=== PATIENT | female | born 1965 | race American Indian/Alaskan Native ===

== ENCOUNTER 2020-02-14 19:07 | Emergency (ER) | payer OTHER ==
--- NOTE | 2020-02-14 19:36 | Event Note ---
ED Screening Note ED Screening Note: pt presents for constipation that began 4 days ago not able to pass gas has not used any medication abd pain no vomiting no nausea +abdominal bloating PSHx: x1, hysterectomy no allergies to meds This initial assessment/diagnostic orders/clinical plan/treatment(s) is/are subject to change based on patients health status, clinical progression and re- assessment by fellow clinical providers in the ED. Further treatment and workup at subsequent clinical providers discretion. Patient/guardian urged not to elope from the ED as their condition may be serious if not clinically assessed and managed. Initial orders include: labs, UA, CT abd pelvis
[2020-02-14 20:06] LABS: Basophils % (Auto) 0.5 % (0.0-1.8); Eosinophils # (Auto) 0.1 K/mm3 (0.0-0.4); Eosinophils % (Auto) 0.9 % (0.0-4.3); Hemoglobin 13.8 gm/dl (10.1-14.3); Lymphocytes # (Auto) 2.2 K/mm3 (1.2-5.4); Lymphocytes % (Auto) 25.7 % (13.4-35.0); Monocytes # (Auto) 0.6 K/mm3 (0.0-0.8); Monocytes % (Auto) 6.5 % (0.0-7.3)
[2020-02-14 20:10] LABS: Hematocrit 41.3 % (30.3-42.9); Mean Corpuscular HGB Conc 34 % (30-34); Mean Corpuscular Volume 91 fl (79-97); Platelet Count 239 K/mm3 (140-440); Red Blood Count 4.54 M/mm3 (3.65-5.03); Red Cell Distribution Width 12.8 % (13.2-15.2)
[2020-02-14 20:27] LABS: Alanine Aminotransferase 29 units/L (7-56); Albumin 4.4 g/dL (3.9-5); BUN/Creatinine Ratio 14; Blood Urea Nitrogen 10 mg/dL (7-17); Calcium 9.8 mg/dL (8.4-10.2); Hemolysis Index 6
[2020-02-14] MEDS ORDERED: MORPHINE 4 MG/1 ML INJ IV ONE (20:47)
[2020-02-14] MEDS ORDERED: ONDANSETRON 4 MG/2 ML INJ IV ONE (20:47)
[2020-02-14] MEDS ORDERED: SODIUM CHLORIDE 0.9% 500 ML 500 ML IV ONE (20:47)
--- NOTE | 2020-02-14 20:52 | Emergency Department Report ---
ED Abdominal Pain HPI - General Chief Complaint: Abdominal Pain Stated Complaint: CANT HAVE A BM PUI?: No Time Seen by Provider: 02/14/20 19:33 Source: patient, family, RN notes reviewed Mode of arrival: Ambulatory Limitations: No Limitations - History of Present Illness Initial Comments: Please note that this provider is conversant in Mongolian. In addition, the patient is accompanied by her , who is conversational and fluent in both Niuean and Mongolian, and the patient requests that the translate for her. The patient is a 54-year-old female who is not known to myself previously, she does not have a local primary care doctor, denies chronic medical conditions, reports a surgical history of C-sections. Presents to the ER with a complaint of 4 days abdominal distention, inability to have a bowel movement, diffuse lower back pain, diffuse lower abdominal pain. No headache, neck pain, chest pain, shortness of breath, question dysuria, no cough, no exposure to coronavirus, no loss of taste. Minimal flatulence. Symptoms constant for the past 4 days, do not radiate anywhere, and she does not describe exacerbating or relieving factors. No additional complaints she does believe that her abdomen is distended when compared to baseline. Her corroborates this. MD Complaint: abdominal pain -: Gradual, days(s) Location: diffuse Radiation: other Migration to: other Quality: other Consistency: other Improves With: other Worsens With: other Associated Symptoms: nausea, vomiting, constipation, other. denies: diarrhea, fever, hematemesis, hematochezia, melena, hematuria - Related Data Previous Rx's Medication Instructions Recorded Last Taken Type Lactulose [Cephulac] 20 gm PO QDAY #210 ml 02/15/20 Unknown Rx polyethylene glycoL 3350 [Miralax 17 gm PO BID #60 packet 02/15/20 Unknown Rx 3350] Allergies Allergy/AdvReac Type Severity Reaction Status Date / Time No Known Allergies Allergy Unverified 02/14/20 19:26 ED Review of Systems ROS: Stated complaint: CANT HAVE A BM Other details as noted in HPI Constitutional: denies: fever Eyes: denies: eye discharge ENT: denies: congestion Respiratory: denies: cough Cardiovascular: denies: chest pain Gastrointestinal: abdominal pain, constipation Genitourinary: as per HPI Musculoskeletal: back pain Skin: denies: lesions Neurological: denies: headache Hematological/Lymphatic: denies: easy bleeding ED Past Medical Hx - Social History Smoking Status: Never Smoker Substance Use Type: Alcohol - Medications Home Medications: Home Medications Medication Instructions Recorded Confirmed Last Taken Type Lactulose [Cephulac] 20 gm PO QDAY #210 ml 02/15/20 Unknown Rx polyethylene glycoL 3350 [Miralax 17 gm PO BID #60 packet 02/15/20 Unknown Rx 3350] ED Physical Exam - General Limitations: Language Barrier General appearance: alert, in no apparent distress - Head Head exam: Present: atraumatic, normocephalic - Eye Eye exam: Present: normal appearance, EOMI. Absent: nystagmus - ENT ENT exam: Present: normal exam, normal orophraynx, mucous membranes moist, normal external ear exam - Neck Neck exam: Present: normal inspection, full ROM. Absent: tenderness, meningismus - Respiratory Respiratory exam: Present: normal lung sounds bilaterally. Absent: respiratory distress - Cardiovascular Cardiovascular Exam: Present: regular rate, normal rhythm, normal heart sounds. Absent: bradycardia, tachycardia, irregular rhythm, systolic murmur, diastolic murmur, rubs, gallop - GI/Abdominal GI/Abdominal exam: Present: soft, distended, tenderness, diminished bowel sounds. Absent: guarding, rigid, pulsatile mass - Extremities Exam Extremities exam: Present: normal inspection, full ROM, other (2+ pulses noted in the bilateral upper and lower extremities. There is no palpable cord. negative Homans sign. Muscular compartments are soft. The pelvis is stable.). Absent: pedal edema, calf tenderness - Back Exam Back exam: Present: normal inspection, full ROM. Absent: tenderness, CVA tenderness (R), CVA tenderness (L), paraspinal tenderness, vertebral tenderness - Neurological Exam Neurological exam: Present: alert, normal gait, other (No facial droop. Tongue midline. Extraocular movements intact bilaterally. Facial sensation intact to light touch in V1, V2, V3 distribution bilaterally. 5 and a 5 strength in 4 extremities. Sensation intact to light touch in 4 extremities.). Absent: motor sensory deficit - Psychiatric Psychiatric exam: Present: anxious - Skin Skin exam: Present: warm, dry, intact, normal color. Absent: rash ED Course Vital Signs 02/14/20 02/14/20 02/14/20 19:26 21:18 21:22 Temperature 98.6 F 98.3 F Pulse Rate 74 69 78 Respiratory 18 15 18 Rate Blood Pressure 169/99 Blood Pressure 167/89 [Right] O2 Sat by Pulse 98 100 100 Oximetry 02/14/20 02/14/20 02/14/20 21:30 21:46 22:09 Temperature Pulse Rate 74 75 92 H Respiratory 21 20 18 Rate Blood Pressure 170/93 170/93 170/93 Blood Pressure [Right] O2 Sat by Pulse 100 100 Oximetry 02/14/20 02/15/20 02/15/20 22:16 01:56 02:00 Temperature Pulse Rate 82 82 Respiratory 18 21 Rate Blood Pressure 170/93 170/93 167/100 Blood Pressure [Right] O2 Sat by Pulse 100 100 100 Oximetry 02/15/20 02:05 Temperature 98.3 F Pulse Rate Respiratory Rate Blood Pressure Blood Pressure [Right] O2 Sat by Pulse Oximetry - Reevaluation(s) Reevaluation #1: 02/14/20 20:52 Differential diagnosis, including but not limited to: Constipation, obstruction, volvulus Assessment and plan: 54-year-old female with a complaint of abdominal pain, distention, nausea, decreased bowel movements, decreased flatus. We will treat her symptoms, obtain CT scan of the abdomen pelvis, EKG, urinalysis, and reassess. Discussed plan of care with patient and , who verbalized understanding, and whom are amenable to this plan of care. Reevaluation #2: 02/15/20 02:08 CT scan shows constipation. Belly soft on repeat exam. No active vomiting. P atient had partial relief with soapsuds enema We will give magnesium citrate in the emergency room, and discontinue with lactulose and MiraLAX prescription. Findings were explained to the patient and she verbalized understanding. Reevaluation #3: 02/15/20 02:13 Hypertension/elevated blood pressure reviewed and appreciated. Patient asymptomatic in this perspective, please reference the [employer] clinical policy on asymptomatic hypertension. ED Medical Decision Making - Lab Data Result diagrams: 02/14/20 19:52 02/14/20 19:52 Vital Signs 02/14/20 19:26 Temperature 98.6 F Pulse Rate 74 Respiratory 18 Rate Blood Pressure 169/99 O2 Sat by Pulse 98 Oximetry - EKG Data -: EKG Interpreted by Me EKG shows normal: sinus rhythm Rate: normal - EKG Data When compared to previous EKG there are: previous EKG unavailable 02/14/20 22:37 Sinus rhythm, 83 bpm, normal axis, QTC is prolonged, nonspecific T wave abnormalities, NM interval within normal limits, no endorsement of chest pain, the EKG is abnormal, the EKG is not a STEMI. - Radiology Data Radiology results: pending, report reviewed, image reviewed Print Report Referring Physician: BAILEY LAIRD Patient Name: JEN BAI Date of : 1965 Sex: Female Report Date: 2020-02-14 Report Status: Finalized Findings [facility] [address] [place] [address] Cat Scan Report Signed Patient: JEN BAI MR#: [id number] 21 : 1965 Acct:[id number] Age/Sex: 54 / F ADM Date: 02/14/20 Loc: ED Attending Dr: Ordering Physician: MARCOS CARROLL Date of Service: 02/14/20 Procedure(s): CT abdomen pelvis w con Accession Number(s): [id number] cc: MARCOS CARROLL CT ABDOMEN AND PELVIS WITH CONTRAST INDICATION / CLINICAL INFORMATION: Pt complains of abdominal pain, distension, constipation x 4 days Omnipaque 300 / 100ml's was used for this exam.. TECHNIQUE: Axial CT images were obtained through the abdomen and pelvis after 100 mL Omnipaque [address] scans at this location are performed using CT dose reduction for ALARA by means of automated exposure control. COMPARISON: None available. FINDINGS: LOWER CHEST: Mild atelectatic changes lung bases. No evident pleural fluid or acute airspace consolidation. LIVER: No significant abnormality. BILIARY SYSTEM: No significant abnormality. PANCREAS: No significant abnormality. SPLEEN: No significant abnormality. ADRENALS: No significant abnormality. KIDNEYS and URETERS: No significant abnormality. STOMACH / BOWEL: No significant abnormality of the stomach and small bowel. Normal appendix. Large volume of fecal material is pr esent throughout the colon. No acute inflammatory or obstructive changes. Fecal material distends the rectum. PERITONEUM: No free fluid. No free air. No fluid collection. LYMPH NODES: No adenopathy. VASCULAR STRUCTURES: No significant abnormality. URINARY BLADDER: Markedly distended. No wall thickening or calculi. REPRODUCTIVE ORGANS: No significant abnormality. ADDITIONAL FINDINGS: None. SKELETAL SYSTEM: No acute finding. Partially lumbarized first sacral segment is incidentally noted. IMPRESSION: 1. Findings suggestive of constipation are present. 2. No other acute finding. Signer Name: Omer Arroyo MD Signed: 02/14/2020 10:38 PM Workstation Name: [id number] Transcribed By: SHANDRA Dic tated By: Omer Arroyo MD Electronically Authenticated By: Omer Arroyo MD Signed Date/Time: 02/14/202237 DD/ 32 Critical care attestation.: If time is entered above; I have spent that time in minutes in the direct care of this critically ill patient, excluding procedure time. ED Disposition Clinical Impression: Elevated blood pressure reading Constipation Qualifiers: Constipation type: other constipation type Qualified Code(s): K59.09 - Other constipation Disposition: DC-01 TO HOME OR SELFCARE Is pt being admited?: No Does the pt Need Aspirin: No Condition: Stable Instructions: High Fiber Diet (ED), Constipation (ED) Additional Instructions: Do not take metformin medication for the next 2 days, if patient takes this medication. Patient is found to have constipation in the emergency room. Constipation symptoms can sometimes take 3 to 6 weeks to completely resolve. The best treatment for constipation is to change diet and lifestyle. Recommend patient drink 6 cups of water per day, eat plenty of fiber, vegetables, and lean protein. Patient may take the MiraLAX as directed, and lactulose as directed on a temporary basis to assist with having a bowel movement. Avoid consumption of heavy and spicy foods, alcohol, simple carbohydrates, and processed foods. Please follow-up with a primary care doctor within the next 7 to 10 days. Please return to the emergency room right away with new pain, worsening pain, migration of pain, projectile vomiting, change in mental status, confusion, inability to tolerate liquid feeds, new, worsened or different symptoms not present on the initial emergency room evaluation. Patient was also found to have elevated blood pressure while in the emergency room. She should follow-up with her primary care doctor for this within the next 4 to 6 weeks. Long-term complications of hypertension include stroke, heart attack, disability, paralysis, loss of quality of life. Initial treatment of hypertens ion includes proper diet, exercise, weight loss No tome medicamentos con metformina jean los prximos 2 chery, si el paciente ananth darcy medicamento. Se encuentra que el paciente tiene estreimiento en la reina de emergencias. Los sntomas de estreimiento a veces pueden suman de 3 a 6 semanas para resolverse por completo. El mejor tratamiento para el estreimiento es cambiar la dieta y el estilo de basil. Recomiende que el paciente tome 6 tazas de agua por da, coma sawyer fibra, verduras y protenas magras. El paciente puede suman el MiraLAX segn las indicaciones y la lactulosa segn las indicaciones de forma temporal para ayudar a evacuar. Evite el consumo de alimentos pesados ??y picantes, alcohol, carbohidratos simples y alimentos procesados. Clemnete un seguimiento con un mdico de atencin primaria dentro de los prximos 7 a 10 chery. Regrese a la reina de emergencias de inmediato con un nuevo dolor, empeoramiento del dolor, migracin del dolor, vmito proyectil, cambio en el estado mental, confusin, incapacidad para tolerar la alimentacin lquida, sntomas nuevos, empeorados o diferentes que no estn presentes en la evaluacin inicial de la reina de emergencias. Referrals: JEAN-PIERRE CHILDRESS MD [Staff Physician] - 3-[address] [facility] [Provider Group] - 3-5 Days Print Language: UKRAINIAN
[2020-02-14] MEDS ORDERED: MORPHINE 2 MG/1 ML INJ ONE (21:07)
[2020-02-14 21:39] LABS: Bilirubin,Urine NEG (Negative); Blood,Urine NEG (Negative); Color,Urine Colorless (Yellow); Mucus,Urine FEW /HPF; Protein,Urine <15 mg/dL mg/dL (Negative); Urobilinogen,Urine < 2.0 mg/dL (<2.0); WBC,Urine < 1.0 /HPF (0.0-6.0)
--- NOTE | 2020-02-14 22:42 | Cat Scan Report ---
CT ABDOMEN AND PELVIS WITH CONTRAST INDICATION / CLINICAL INFORMATION: Pt complains of abdominal pain, distension, constipation x 4 days Omnipaque 300 / 100ml's was used fo r this exam.. TECHNIQUE: Axial CT images were obtained through the abdomen and pelvis after 100 mL Omnipaque [address] scans at this location are performed using CT dose reduction for ALARA by means of automated exposure control. COMPARISON: None available. FINDINGS: LOWER CHEST: Mild atelectatic changes lung bases. No evident pleural fluid or acute airspace consolid ation. LIVER: No significant abnormality. BILIARY SYSTEM: No significant abnormality. PANCREAS: No significant abnormality. SPLEEN: No significant abnormality. ADRENALS: No significant abnormality. KIDNEYS and URETERS: No significant abnormality. STOMACH / BOWEL: No significant abnormality of the stomach and small bowel. Normal appendix. Large vo lume of fecal material is present throughout the colon. No acute inflammatory or obstructive changes. Fecal material distends the rectum. PERITONEUM: No free fluid. No free air. No fluid collection. LYMPH NODES: No adenopathy. VASCULAR STRUCTURES: No significant abnormality. URINARY BLADDER: Markedly distended. No wall thickening or calculi. REPRODUCTIVE ORGANS: No significant abnormality. ADDITIONAL FINDINGS: None. SKELETAL SYSTEM: No acute finding. Partially lumbarized first sacral segment is incidentally noted. IMPRESSION: 1. Findings suggestive of constipation are present. 2. No other acute finding. Signer Name: Omer Arroyo MD Signed: 02/14/2020 10:38 PM Workstation Name: [id number]
[2020-02-15 02:04] VITALS: BP 167/100
[2020-02-15] MEDS ORDERED: MAGNESIUM CITRATE 300 ML ORAL LIQD PO ONE (02:08)
== END 2020-02-15 02:33 | disposition home or self-care (01) ==
LOC: ED 19:07
DX: K59.00 Constipation, unspecified (principal); R03.0 Elevated blood-pressure reading, without diagnosis of hypertension; R11.2 Nausea with vomiting, unspecified; Z79.899 Other long term (current) drug therapy
CPT/HCPCS: 36415; 74177; 80053; 81001; 82550; 83690; 83735; 85025; 93005; 96361; 96374; 96375; 99285; J2270; J2405; J7040; Q9967